=== PATIENT | male | born 1955 | race Hispanic/Latino ===

== ENCOUNTER 2017-09-02 17:28 | Emergency (ER) | payer SELFPAY ==
[~2017-09-02] VITALS: Ht 152.4 cm; Wt 61.2 kg
[~2017-09-02 17:28] MED LIST: IBU800 MG PO; VICODIN 300 MG-1 TAB PO
[2017-09-02 17:31] VITALS: BP 165/89
--- NOTE | 2017-09-02 17:36 | ED ANIMAL BITE/WOUND CHECK ---
History of Present Illness General Chief Complaint: Suture Removal/Wound Recheck Stated Complaint: SUTURE REMOVAL Source: patient Exam Limitations: no limitations Vital Signs & Intake/Output Vital Signs & Intake/Output Vital Signs Date Time Temp Pulse Resp B/P B/P Pulse O2 O2 Flow FiO2 Mean Ox Delivery Rate 09/02 1731 97.2 90 18 165/89 97 Room Air Allergies Coded Allergies: NO KNOWN ALLERGIES (07/26/13) Reconcile Medications HYDROCODONE/ACETAMINOPHEN (Vicodin 5-300 MG Tablet) 5 MG-300 MG TABLET 1 TAB PO Q6H PRN PAIN Ibuprofen (Ibu) 800 MG TAB 1 TAB PO Q8H PRN PAIN Triage Note: PT HERE FOR SUTURE REMOVAL FROM HIS LEFT HAND SUTURES PLACED 11 DAYS AGO. Triage Nurses Notes Reviewed? yes Onset: Abrupt Duration: day(s): Timing: recent history HPI: 62-year-old male comes into the emergency room for further evaluation of suture removal to left hand. Denies any redness on discharge fever chills. Sutures HAVE BEEN in for about 11 days (Bryson Armenta) Past History Travel History Traveled to [place] past 21 day No Medical History Any Pertinent Medical History? see below for history Neurological: NONE EENT: NONE Cardiovascular: NONE Respiratory: NONE Gastrointestinal: NONE Hepatic: NONE Renal: NONE Musculoskeletal: NONE Psychiatric: NONE Endocrine: NONE Tetanus Vaccine: 08/23/17 Surgical History Surgical History: N Psychosocial History What is your primary language [place] Tobacco Use: Never used ETOH Use: denies use Illicit Drug Use: denies illicit drug use Family History Hx Contributory? No (Bryson Armenta) Review of Systems Review of Systems Constitutional: Reports: no symptoms. EENTM: Reports: no symptoms. Respiratory: Reports: no symptoms. Cardiovascular: Reports: no symptoms. GI: Reports: no symptoms. Genitourinary: Reports: no symptoms. Musculoskeletal: Reports: no symptoms. Skin: Reports: see HPI. Neurological/Psychological: Reports: no symptoms. Hematologic/Endocrine: Reports: no symptoms. Immunologic/Allergic: Reports: no symptoms. All Other Systems: Reviewed and Negative (Bryson Armenta) Physical Exam Physical Exam General Appearance: well developed/nourished, mild distress Head: atraumatic Eyes: Bilateral: normal appearance. Ears, Nose, Throat: normal ENT inspection, hearing grossly normal Neck: normal inspection Respiratory: no respiratory distress Back: normal inspection Extremities: Sutures in place to left hand, no erythema, no discharge, Neurologic/Psych: awake, alert, oriented x 3, normal mood/affect Skin: intact, normal color, warm/dry (Bryson Armenta) Progress Differential Diagnosis: abscess, cellulitis, joint infection, tenosysnovitis Plan of Care: 09/02/2017 6:27:17 PM Sutures removed. In no apparent distress. (Bryson Armenta) Departure Departure Disposition: HOME OR SELF CARE Condition: Stable Clinical Impression Primary Impression: Encounter for removal of sutures Referrals: Patient Has No Primary Care Dr (PCP/Family) Additional Instructions: Return if any other concerns worsening symptoms. Please go over all results of today's visit with your primary care doctor. Contact your primary care doctor to let them know you were here in the emergency room. There may be nonspecific findings which may not be related to your visit today here in the emergency room but may require further evaluation and chronic monitoring by your primary care doctor. If you had a laceration today the chance of foreign body always remains. You should follow-up with your primary care doctor for recheck in 3-5 days for a wound check. If you had an x-ray done there is a chance that a fracture could have been missed on initial read and you should follow-up with your primary care doctor for repeat x-rays if symptoms persist. If your blood pressure was elevated here in the emergency room please have rechecked by [facility] primary care doctor within the next 48. If you were prescribed a narcotic here in the emergency room or any type of controlled substances you're not allowed to drive while taking this medication or operate any type of heavy machinery. Narcotics can make you feel lightheaded dizziness nausea and can cause constipation. You may need to pharmacy picking tech a stool softener. Thank you for choosing [facility] emergency room. Please return to the emergency room immediately if you have any other concerns worsening of symptoms. Departure Forms: Customer Survey General Discharge Information (Bryson Armenta) PA/PLACEMENT DIRECTOR Co-Sign Statement Statement: ED Attending supervision documentation- x I saw and evaluated the patient. I have also reviewed all the pertinent lab results and diagnostic results. I agree with the findings and the plan of care as documented in the PA's/PLACEMENT DIRECTOR's documentation. [] I have reviewed the ED Record and agree with the PA's/PLACEMENT DIRECTOR's documentation. [] Additions or exceptions (if any) to the PAs/PLACEMENT DIRECTOR's note and plan are summarized below: [] (hSayy DUFFY,Jose)
== END 2017-09-02 17:57 ==
LOC: ERH 17:28
DX: Z48.02 Encounter for removal of sutures (principal)